=== PATIENT | female | born 1965 | race Caucasian/White ===

== ENCOUNTER 2024-06-23 07:28 | Day surgery (SDC) | payer BC ==
[2024-06-23] MEDS ORDERED: Glucagon,Human Recombinant 1 MG Vial IV ONE (07:29)
[2024-06-23] MEDS ORDERED: Lidocaine 1% PF 2 ML SDV IV ONE (07:29)
[2024-06-23] MEDS ORDERED: Propofol 200 MG/20 ML SDV IV ONE (07:29)
[2024-06-23] MEDS ORDERED: Midazolam 1 MG/ML 2 ML SDV IV ONE (07:29)
[2024-06-23] MEDS ORDERED: Sodium Chloride 0.9% 10 ML Syringe FLUSH PRN (07:30)
[2024-06-23] MEDS: Lactated Ringers 1,000 ML IV SCH (08:14)
== END 2024-06-23 10:06 | disposition home or self-care (01) ==
LOC: FB.SDS 07:28
PROVIDERS: ATTEND Surgery
DX: Z12.11 Encounter for screening for malignant neoplasm of colon (principal); K57.30 Diverticulosis of large intestine without perforation or abscess without bleeding; K62.89 Other specified diseases of anus and rectum; K58.9 Irritable bowel syndrome, unspecified; I10 Essential (primary) hypertension; Z80.0 Family history of malignant neoplasm of digestive organs; Z88.0 Allergy status to penicillin; Z91.09 Other allergy status, other than to drugs and biological substances; Z91.040 Latex allergy status; Z79.899 Other long term (current) drug therapy
CPT/HCPCS: 00812; J1610; J2003; J2250; J2704; J7120